=== PATIENT | female | born 1935 | race Caucasian/White ===

== ENCOUNTER 2020-04-09 10:40 | Emergency (ER) | payer OTHER ==
[2020-04-09] MEDS ORDERED: CEFTRIAXONE 1GM BAG (ER ONLY) 50 ML IV ONE (11:11)
[2020-04-09] MEDS ORDERED: CEFTRIAXONE 1GM BAG (ER ONLY) 1 GM/50 ML PIGGYBACK IV ONE (11:30)
== END 2020-04-09 11:34 | disposition home or self-care (01) ==
DX: L03.115 Cellulitis of right lower limb (principal); Z98.890 Other specified postprocedural states; Z88.0 Allergy status to penicillin; Z88.2 Allergy status to sulfonamides; Z88.6 Allergy status to analgesic agent; Z91.040 Latex allergy status; Z88.1 Allergy status to other antibiotic agents; Z60.2 Problems related to living alone
CPT/HCPCS: 96365; 99284; J0696

== ENCOUNTER 2020-04-12 16:43 | Emergency (ER) | payer OTHER, MEDICAID ==
[~2020-04-12] VITALS: Ht 157.5 cm; Wt 55.8 kg
--- NOTE | 2020-04-12 16:55 | NUR ---
BIB [facility] FROM URGENT CARE DUE TO HIGH BP,240/160, WENT THERE FOR INSECT BITES. PATIENT A/OX4, BREATHING EVEN AND UNLABORED, NO SOB NOTED, DENIES PAIN AT THIS TIME. BUT PATIENT INSISTED BLOOD PRESSURE IS HIGH BECAUSE SHE'S BEEN HAVING PAIN RECENTLY AND STS SHE STOPPED TAKING BLOOD PRESSURE MEDICATIONS. ATTACHED TO THE JUNIOR SALES REPRESENTATIVE.
--- NOTE | 2020-04-12 17:10 | NUR ---
IV LINE ESTABLISHED, BLOOD DRAWN DONE AND SENT TO LAB.
[2020-04-12 17:33] LABS: BASOPHILS % (AUTO) 0.4 % (0.0-2.0); EOSINOPHILS % (AUTO) 3.1 % (0.0-6.0); HEMATOCRIT 39 % (33-45); HEMOGLOBIN 12.8 g/dL (11.5-14.8); LYMPHOCYTES % (AUTO) 27.3 % (20.0-44.0); MEAN CORPUSCULAR HGB CONC 33 g/dl (31.0-36.0); MEAN CORPUSCULAR VOLUME 92 fL (82-100); MONOCYTES # (AUTO) 0.8 /CMM (0.1-1.30); MONOCYTES % (AUTO) 10.9 % (2.0-12.0); NEUTROPHILS # (AUTO) 4.2 /CMM (1.8-8.9); NEUTROPHILS % (AUTO) 58.3 % (43.0-81.0); PLATELET COUNT (AUTO) 259 /CMM (150-450); RED BLOOD CELL COUNT(AUTO) 4.24 MIL/uL (4.0-5.2); WHITE BLOOD COUNT (AUTO) 7.2 K/uL (4.3-11.0)
[2020-04-12] MEDS ORDERED: HYDROCODONE/APAP 5/325MG TABLET ONE (17:37)
[2020-04-12 17:42] LABS: CALCIUM, SERUM 9.7 mg/dL (8.5-10.1); CARBON DIOXIDE 22 mmol/L (21-32); CHLORIDE 102 mmol/L (98-107); CREATININE 1.4 mg/dL (0.6-1.3); GLUCOSE 90 mg/dL (74-106); POTASSIUM 4.6 mmol/L (3.5-5.1); SODIUM SERUM 136 mmol/L (136-145); UREA NITROGEN, BLOOD 35 mg/dL (7-18)
[2020-04-12] MEDS: HYDROCODONE/APAP 5/325MG TABLET PO ONE (17:43)
[2020-04-12] MEDS: IV NS 0.9% 500 ML BAG IV ONE (17:43)
[2020-04-12] MEDS ORDERED: hydrALAZINE HCL IV 20 MG VIAL ONE (18:39)
[2020-04-12] MEDS: hydrALAZINE HCL IV 20 MG VIAL IV ONE (18:44)
--- NOTE | 2020-04-12 19:29 | NUR ---
Patient discharged to home in stable condition. Written and verbal after care instructions given. Patient verbalizes understanding of instruction. IV removed. Catheter intact and site benign. Pressure and 4x4 applied to site. No bleeding noted.
[2020-04-12 19:33] VITALS: BP 160/80
== END 2020-04-12 19:33 | disposition home or self-care (01) ==
LOC: ER 16:43
DX: I10 Essential (primary) hypertension (principal); R42 Dizziness and giddiness; Z91.19 Patient's noncompliance with other medical treatment and regimen; Z85.828 Personal history of other malignant neoplasm of skin; Z90.13 Acquired absence of bilateral breasts and nipples; Z96.641 Presence of right artificial hip joint; Z88.0 Allergy status to penicillin; Z88.2 Allergy status to sulfonamides; Z88.6 Allergy status to analgesic agent; Z88.1 Allergy status to other antibiotic agents; Z88.5 Allergy status to narcotic agent; Z60.2 Problems related to living alone
CPT/HCPCS: 36415; 71045; 80048; 82962; 84484; 85025; 85730; 93005; 96374; 99285; J0360; J7040